=== PATIENT | female | born 1995 | race Caucasian/White ===

== ENCOUNTER 2017-02-06 12:30 | Emergency (ER) | payer BC, MEDICAID ==
[2017-02-06] MEDS ORDERED: Ibuprofen TAB* 200 MG PO ONE (12:48)
[2017-02-06 12:57] VITALS: BP 149/92
--- NOTE | 2017-02-06 13:02 | UC ---
jah Blanco Timothy, scribed for Darya Lugo MD on 02/06/17 at 1250 . Lower Extremity/Ankle HPI - HPI Summary HPI Summary: Didi Zimmer is a 21 yo female presenting to [facility] with 4/10 pain in her right calf since 02/04/17. She states that last night she had a difficult time sleeping second to discomfort. She notes edema "when she looks at it from the side." Pt states she walks a lot at work. Pt states feels pain when steps and "pushes off. " Pain in calf. No paresthesia. No analgesia. Pt states she works at a [employer] facility - pt states an RN at her facility states it may be a DVT so pt was sent for imaging and further eval. She states she is not sexually active, but is on hormonal control pills. Pt does smoke tobacco. 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 She denies any MHx or surgical history, but uses tobacco. - History of Current Complaint Stated Complaint: PAIN IN CALF OF LEG Time Seen by Provider: 02/06/17 12:44 Hx Obtained From: Patient Hx Last Menstrual Period: one month ago ?: No Onset/Duration: Gradual Onset, Lasting Days, Still Present Severity Initially: Moderate Severity Currently: Moderate Pain Intensity: 4 Pain Scale Used: 0-10 Numeric - Allergies/Home Medications Allergies/Adverse Reactions: Allergies Allergy/AdvReac Type Severity Reaction Status Date / Time No Known Allergies Allergy Verified 02/06/17 12:54 Home Medications: Home Medications Medroxyprogesterone Acetate (C [Depo-Provera Contraceptiv] 1 inj IM SEE INSTRUCTIONS 02/06/17 [History Confirmed 02/06/17] PMH/Surg Hx/FS Hx/Imm Hx Previously Healthy: Yes - Surgical History Surgical History: None - Family History Known Family History: Positive: Cardiac Disease, Hypertension, Diabetes, Other - breast CA Negative: Blood Disorder - DVT or other clots - Social History Occupation: Employed Full-time Lives: With Family Alcohol Use: None Substance Use Type: None Smoking Status (MU): Never Smoked Tobacco Type: Cigarettes Review of Systems Constitutional: Negative Skin: Negative Eyes: Negative ENT: Negative Respiratory: Negative Cardiovascular: Negative Gastrointestinal: Negative Genitourinary: Negative Motor: Negative Neurovascular: Negative Musculoskeletal: Other: - pain right calf Neurological: Negative Psychological: Negative All Other Systems Reviewed And Are Negative: Yes Physical Exam Triage Information Reviewed: Yes Completion Of Physical Exam Limited Due To: Altered Mental Status Appearance: Well-Appearing, No Pain Distress Vital Signs: Initial Vital Signs Pulse 95 02/06/17 12:50 Resp 16 02/06/17 12:50 BP 149/92 02/06/17 12:50 Pulse Ox 99 02/06/17 12:50 Neck exam: Normal Neck: Positive: Supple Respiratory: Positive: Normal breath sounds Cardiovascular: Positive: Other: - 2+ PT, DP CBT <2 sec Musculoskeletal Exam: Normal Musculoskeletal: Positive: Strength Intact, Other: - + SLE + flex/ext ankle + flex/ext great toe + very mild TTP calf right leg No edema, no mass Neurological: Positive: Alert, Muscle Tone Normal Psychological Exam: Normal Skin Exam: Normal Diagnostics - Radiology RLE US Xray Interpretation: No Acute Changes - IMPRESSION: NO RIGHT LOWER EXTREMITY DEEP VEIN THROMBOSIS Radiology Interpretation Completed By: Radiologist Re-Evaluation - Re-Evaluation First Eval Re-Evaluation Time: 13:40 Change: Unchanged Comment: Reviewed imaging study with Pt, she is agreeable to be discharged. Lower Extremity Course/Dx - Course Course Of Treatment: Didi Zimmer is a 21 yo female presenting to [facility] with 4/ 10 right calf pain for the past 2 days. She smokes tobacco and is on hormonal control. In the ED course she received ibuprofen for pain management. Her RLE US reports no DVT. After clinical examination and review of her imaging study, she will be discharged home with appropriate instructions. motrin/apap. heat. stretch. pcp f/u. work note - Differential Dx/Diagnosis Differential Diagnosis/HQI/PQRI: DVT Provider Diagnoses: muscle strain Discharge - Discharge Plan Condition: Stable Disposition: HOME Patient Education Materials: Muscle Strain (ED) Forms: *Work Release Referrals: Josesito Bragg MD [Primary Care Provider] - 2 Days Additional Instructions: Alternate ibuprofen (Advil, Motrin) 600mg and Tylenol every 3 hours for pain, Take with food. Do NOT take for more than 4-5 days. Apply heat, 20 minutes at a time, 2-3 times a day for pain Once your muscle are warm, slow, gentle stretching exercises Wear shoes with good ankle support Avoid strenuous activities until your leg is feeling better Contact your doctor to schedule a follow-up appointment. contact your doctor or return with questions or concerns Please follow up with your primary care physician regarding your visit to urgent care today. Return to urgent care or the emergency department with any new or recurring symptoms. The documentation as recorded by the jah peck Timothy accurately reflects the service I personally performed and the decisions made by me, Darya Lugo MD.
--- NOTE | 2017-02-06 13:35 | RAD ---
HISTORY: Right calf pain COMPARISONS: None relevant TECHNIQUE: Multiple transverse and longitudinal ultrasound images were obtained of the right lower extremity from the level of the common femoral vein inferiorly through to the infrapopliteal veins using grayscale, color Doppler, and spectral Doppler imaging with and without compression and with augmentation. Comparison images were obtained of the contralateral common femoral vein. FINDINGS: VEINS: The venous system of the right lower extremity is compressible throughout its course, with normal flow on color Doppler imaging and normal response to augmentation on spectral Doppler imaging. SOFT TISSUES: Unremarkable. OTHER FINDINGS: None. IMPRESSION: NO RIGHT LOWER EXTREMITY DEEP VEIN THROMBOSIS
== END 2017-02-06 13:55 | disposition home or self-care (01) ==
LOC: UCEAST 12:30
DX: S86.911A Strain of unspecified muscle(s) and tendon(s) at lower leg level, right leg, initial encounter (principal); Z72.0 Tobacco use
CPT/HCPCS: 99212; A9270-GY; G0463

== ENCOUNTER → 2017-04-16 14:19 | Emergency (ER) | payer BC ==
[~2017-04-16 14:19] MED LIST: Potassium Chlor TAB* 20 MEQ TAB.ER PO ONE
[2017-04-16 15:03] LABS: Hematocrit 45 % (35-47); Hemoglobin 15.1 g/dl (12.0-16.0); Mean Corpuscular HGB Conc 33 g/dl (31-36); Mean Corpuscular Hemoglobin 30 pg (27-31); Mean Corpuscular Volume 90 fL (80-97); Mean Platelet Volume 9 um3 (7.4-10.4); Red Cell Distribution Width 13 % (10.5-15); White Blood Count 6.1 10^3/ul (3.5-10.8)
[2017-04-16 15:18] LABS: ALT 18 U/L (7-52); AST 16 U/L (13-39); Albumin 4.7 g/dL (3.2-5.2); Alkaline Phosphatase 52 U/L (34-104); Anion Gap 8 mmol/L (2-11); BUN/Creatinine Ratio 11.2 (8-20); Blood Urea Nitrogen 12 mg/dL (6-24); CO2 Carbon Dioxide 25 mmol/L (22-32); Calcium 9.2 mg/dL (8.6-10.3); Chloride 104 mmol/L (101-111); Creatine Kinase 121 U/L (10-223); EGFR African American 84.1 (>60); EGFR Non-African American 65.4 (>60); Glucose 119 mg/dL (70-100); Magnesium 2.1 mg/dL (1.9-2.7); Potassium 3.4 mmol/L (3.5-5.0); Sodium 137 mmol/L (133-145); Total Protein 7.7 g/dL (6.4-8.9)
[2017-04-16 15:19] LABS: Urine Bacteria Absent (Absent); Urine Bilirubin Negative (Negative); Urine Glucose Negative (Negative); Urine Nitrite Negative (Negative)
--- NOTE | 2017-04-16 15:26 | RAD ---
HISTORY: Palpitation COMPARISONS: None VIEWS: 4: Frontal dual-energy and lateral views of the chest. FINDINGS: CARDIOMEDIASTINAL SILHOUETTE: The cardiomediastinal silhouette is normal. BOWEN: The bowen are normal. PLEURA: The costophrenic angles are sharp. No pleural abnormalities are noted. LUNG PARENCHYMA: The lungs are clear. ABDOMEN: The upper abdomen is clear. There is no subphrenic gas. BONES AND SOFT TISSUES: No bone or soft tissue abnormalities are noted. OTHER: None. IMPRESSION: NO ACTIVE CARDIOPULMONARY DISEASE.
[2017-04-16 15:38] LABS: TSH (Thyroid Stimulating Horm) 1.36 mcIU/mL (0.34-5.60)
[2017-04-16 15:57] LABS: Benzodiazepine Urine Screen None Detected (None Detect)
[2017-04-16 17:46] VITALS: BP 133/61
--- NOTE | 2017-04-20 09:19 | PN ---
Progress Note - Progress Note Date of Service: 04/16/17 Note: urine final culture results showed >100,00 of mumtaz vaginalis. called and left message with patient's mother, the phone contact on file. sent flagyl over to pharmacy. spoke with patient at 1:30pm who agrees to treatment plan. Was not having symptoms however due to amount of growth recommended treatment.
--- NOTE | 2017-04-28 07:35 | ED ---
Bianca Blanco Thomas, scribed for David Ragsdale MD on 04/16/17 at 1439 . Palpitations / Dysrhythmia - HPI Summary HPI Summary: The pt is a 21 y/o F presenting to the ED c/o palpitations that began today at around 13:00. The palpitations are characterized as fast and my heart is in my throat. The patient notes similar episodes of palpitations in the past few years, but none to this severity. She also complains of elevated blood pressure of 150/100 during these palpitations. She decided to present to [facility] when a nurse evaluated her pulse and told the patient that she had an irregular pace, but the patient does not have an irregular pace at [facility]. Pt denies nausea, vomiting, dysuria, cough, fever, SOB, and CP. PMHx: previously healthy. PSHx: none. SHx: smoking, no alcohol use, no illicit drug use. The patient is on oral contraceptives. Per triage documentation, the pt complains of CP, but in the examination room the patient denies CP. - History of Current Complaint Chief Complaint: EDDysrhythmPalp Time Seen by Provider: 04/16/17 14:27 Hx Obtained From: Patient Onset/Duration: Sudden Onset, Lasting Hours - today at 13:00, Still Present Severity Currently: None Character: Fast Aggravating: Nothing Alleviating: Nothing Related History: Similar Episode/Dx as - similar as past episodes of palpitations, but no previous episodes to this severity - Allergy/Home Medications Allergies/Adverse Reactions: Allergies Allergy/AdvReac Type Severity Reaction Status Date / Time No Known Allergies Allergy Verified 04/16/17 14:21 PMH/Surg Hx/FS Hx/Imm Hx Previously Healthy: Yes Cardiovascular History: Denies: Hx Atrial Fibrillation, Hx Myocardial Infarction Respiratory History: Denies: Hx Chronic Obstructive Pulmonary Disease (COPD) - Surgical History Surgery Procedure, Year, and Place: None Infectious Disease History: Denies: Traveled Outside the [place] in Last 30 Days - Family History Known Family History: Positive: Cardiac Disease, Hypertension, Diabetes, Other - breast CA Negative: Blood Disorder - DVT or other clots - Social History Alcohol Use: None Substance Use Type: Reports: None Smoking Status (MU): Never Smoked Tobacco Type: Cigarettes Amount Used/How Often: 4-5cig/day Review of Systems Constitutional: Negative Negative: Fever Positive: Palpitations - began today at 13:00, characterized as fast and "my heart is in my throat.", Other - POS: elevated blood pressure of 15/100 during these palpitations Negative: Shortness Of Breath, Cough Negative: Vomiting, Nausea Negative: dysuria All Other Systems Reviewed And Are Negative: Yes Physical Exam - Summary Physical Exam Summary: VITAL SIGNS: Reviewed. GENERAL: ~Patient is a well-developed and nourished female who is lying comfortable in the stretcher. ~Patient is not in any acute respiratory distress. HEAD AND FACE: No signs of trauma. ~No ecchymosis, hematomas or skull depressions. No sinus tenderness. EYES: PERRLA, EOMI x 2, No injected conjunctiva, no nystagmus. EARS: Hearing grossly intact. Ear canals and tympanic membranes are within normal limits. MOUTH: Oropharynx within normal limits. NECK: Supple, trachea is midline, no adenopathy, no JVD, no carotid bruit, no c- spine tenderness, neck with full ROM. CHEST: Symmetric, no tenderness at palpation LUNGS: Clear to auscultation bilaterally. No wheezing or crackles. CVS: She is tachycardic. Regular rhythm. S1 and S2 present, no murmurs or gallops appreciated. ABDOMEN: Soft, non-tender. No signs of distention. No rebound no guarding, and no masses palpated. Bowel sounds are normal. EXTREMITIES: FROM in all major joints, no edema, no cyanosis or clubbing. NEURO: Alert and oriented x 3. No acute neurological deficits. Speech is normal and follows commands. SKIN: Dry and warm Triage Information Reviewed: Yes Vital Signs On Initial Exam: Initial Vitals Temp Pulse Resp BP Pulse Ox 98.2 F 99 20 144/88 100 04/16/17 14:21 04/16/17 14:21 04/16/17 14:21 04/16/17 14:21 04/16/17 14:21 Vital Signs Reviewed: Yes Diagnostics - Vital Signs Vital Signs Temp Pulse Resp BP Pulse Ox 04/16/17 14:21 98.2 F 99 20 144/88 100 - Laboratory Lab Results: Lab Results 04/16/17 04/16/17 04/16/17 Range/Units 14:45 14:45 14:45 WBC 6.1 (3.5-10.8) 10^3/ul RBC 5.00 (4.0-5.4) 10^6/ul Hgb 15.1 (12.0-16.0) g/dl Hct 45 (35-47) % MCV 90 (80-97) fL MCH 30 (27-31) pg MCHC 33 (31-36) g/dl RDW 13 (10.5-15) % Plt Count 242 (150-450) 10^3/ul MPV 9 (7.4-10.4) um3 Neut % (Auto) 52.3 (38-83) % Lymph % (Auto) 33.9 (25-47) % Gladwin % (Auto) 11.5 H (1-9) % Eos % (Auto) 1.0 (0-6) % Baso % (Auto) 1.3 (0-2) % Absolute Neuts (auto) 3.2 (1.5-7.7) 10^3/ul Absolute Lymphs (auto) 2.1 (1.0-4.8) 10^3/ul Absolute Monos (auto) 0.7 (0-0.8) 10^3/ul Absolute Eos (auto) 0.1 (0-0.6) 10^3/ul Absolute Basos (auto) 0.1 (0-0.2) 10^3/ul Absolute Nucleated RBC 0 10^3/ul Nucleated RBC % 0.1 D-Dimer, Quantitative (Less Than 230) ng/mL Sodium 137 (133-145) mmol/L Potassium 3.4 L (3.5-5.0) mmol/L Chloride 104 (101-111) mmol/L Carbon Dioxide 25 (22-32) mmol/L Anion Gap 8 (2-11) mmol/L BUN 12 (6-24) mg/dL Creatinine 1.07 H (0.51-0.95) mg/dL Est GFR ( Amer) 84.1 (>60) Est GFR (Non-Af Amer) 65.4 (>60) BUN/Creatinine Ratio 11.2 (8-20) Glucose 119 H (70-100) mg/dL Lactic Acid 1.4 (0.5-2.0) mmol/L Calcium 9.2 (8.6-10.3) mg/dL Magnesium 2.1 (1.9-2.7) mg/dL Total Bilirubin 0.50 (0.2-1.0) mg/dL AST 16 (13-39) U/L ALT 18 (7-52) U/L Alkaline Phosphatase 52 (34-104) U/L Total Creatine Kinase 121 (10-223) U/L Troponin I 0.00 (<0.04) ng/mL Total Protein 7.7 (6.4-8.9) g/dL Albumin 4.7 (3.2-5.2) g/dL Globulin 3.0 (2-4) g/dL Albumin/Globulin Ratio 1.6 (1-3) TSH 1.36 (0.34-5.60) mcIU/mL Beta HCG, Quant < 0.60 mIU/mL Urine Color Urine Appearance Urine pH (5-9) Ur Specific [place] (1.010-1.030) Urine Protein (Negative) Urine Ketones (Negative) Urine Blood (Negative) Urine Nitrate (Negative) Urine Bilirubin (Negative) Urine Urobilinogen (Negative) Ur Leukocyte Esterase (Negative) Urine WBC (Auto) (Absent) Urine RBC (Auto) (Absent) Ur Squamous Epith Cells (Absent) Urine Bacteria (Absent) Urine Glucose (Negative) Urine Opiates Screen (None Detect) Ur Barbiturates Screen (None Detect) Ur Phencyclidine Scrn (None Detect) Ur Amphetamines Screen (None Detect) U Benzodiazepines Scrn (None Detect) Urine Cocaine Screen (None Detect) U Cannabinoids Screen (None Detect) 04/16/17 04/16/17 04/16/17 Range/Units 14:45 14:58 14:58 WBC (3.5-10.8) 10^3/ul RBC (4.0-5.4) 10^6/ul Hgb (12.0-16.0) g/dl Hct (35-47) % MCV (80-97) fL MCH (27-31) pg MCHC (31-36) g/dl RDW (10.5-15) % Plt Count (150-450) 10^3/ul MPV (7.4-10.4) um3 Neut % (Auto) (38-83) % Lymph % (Auto) (25-47) % Gladwin % (Auto) (1-9) % Eos % (Auto) (0-6) % Baso % (Auto) (0-2) % Absolute Neuts (auto) (1.5-7.7) 10^3/ul Absolute Lymphs (auto) (1.0-4.8) 10^3/ul Absolute Monos (auto) (0-0.8) 10^3/ul Absolute Eos (auto) (0-0.6) 10^3/ul Absolute Basos (auto) (0-0.2) 10^3/ul Absolute Nucleated RBC 10^3/ul Nucleated RBC % D-Dimer, Quantitative < 200 (Less Than 230) ng/mL Sodium (133-145) mmol/L Potassium (3.5-5.0) mmol/L Chloride (101-111) mmol/L Carbon Dioxide (22-32) mmol/L Anion Gap (2-11) mmol/L BUN (6-24) mg/dL Creatinine (0.51-0.95) mg/dL Est GFR ( Amer) (>60) Est GFR (Non-Af Amer) (>60) BUN/Creatinine Ratio (8-20) Glucose (70-100) mg/dL Lactic Acid (0.5-2.0) mmol/L Calcium (8.6-10.3) mg/dL Magnesium (1.9-2.7) mg/dL Total Bilirubin (0.2-1.0) mg/dL AST (13-39) U/L ALT (7-52) U/L Alkaline Phosphatase (34-104) U/L Total Creatine Kinase (10-223) U/L Troponin I (<0.04) ng/mL Total Protein (6.4-8.9) g/dL Albumin (3.2-5.2) g/dL Globulin (2-4) g/dL Albumin/Globulin Ratio (1-3) TSH (0.34-5.60) mcIU/mL Beta HCG, Quant mIU/mL Urine Color Yellow Urine Appearance Cloudy Urine pH 6.0 (5-9) Ur Specific [place] 1.016 (1.010-1.030) Urine Protein Negative (Negative) Urine Ketones Negative (Negative) Urine Blood Negative (Negative) Urine Nitrate Negative (Negative) Urine Bilirubin Negative (Negative) Urine Urobilinogen Negative (Negative) Ur Leukocyte Esterase 3+ H (Negative) Urine WBC (Auto) Trace(0-5/hpf) (Absent) Urine RBC (Auto) Absent (Absent) Ur Squamous Epith Cells Present H (Absent) Urine Bacteria Absent (Absent) Urine Glucose Negative (Negative) Urine Opiates Screen None detected (None Detect) Ur Barbiturates Screen None detected (None Detect) Ur Phencyclidine Scrn None detected (None Detect) Ur Amphetamines Screen None detected (None Detect) U Benzodiazepines Scrn None detected (None Detect) Urine Cocaine Screen None detected (None Detect) U Cannabinoids Screen None detected (None Detect) Result Diagrams: 04/16/17 14:45 04/16/17 14:45 Lab Statement: Any lab studies that have been ordered have been reviewed, and results considered in the medical decision making process. - Radiology CXR Xray Interpretation: No Acute Changes - No active cardiopulmonary disease. Radiology Interpretation Completed By: Radiologist - EKG 14:36 Cardiac Rate: NL - 96 BPM EKG Interpretation: NSR with no ST elevations Course/Dx - Course Assessment/Plan: The pt is a 21 y/o F presenting to the ED c/o palpitations that began today at around 13:00. The palpitations are characterized as fast and my heart is in my throat. The patient notes similar episodes of palpitations in the past few years, but none to this severity. She also complains of elevated blood pressure of 150/100 during these palpitations. She decided to present to [facility] when a nurse evaluated her pulse and told the patient that she had an irregular pace, but the patient does not have an irregular pace at [facility]. Pt denies nausea, vomiting, dysuria, cough, fever, SOB , and CP. PMHx: previously healthy. PSHx: none. SHx: smoking, no alcohol use, no illicit drug use. The patient is on oral contraceptives. Per triage documentation, the pt complains of CP, but in the examination room the patient denies CP. The patients bloodwork is without significant abnormalities. The D- dimer is negative and the CXR is negative. All the patients symptoms have resolved. The EKG is NSR without ST elevations. The patient is asymptomatic, so she will be discharged home with follow up by her PCP. - Diagnoses Differential Diagnosis/HQI/PQRI: Positive: Coronary Artery Disease, Hypokalemia , Pericarditis Provider Diagnoses: Palpitations, Chest pain Discharge - Discharge Plan Condition: Stable Disposition: HOME Prescriptions: metroNIDAZOLE VAGINAL 0.75%* 1 applic VAGINAL BEDTIME #1 tube Patient Education Materials: Chest Pain (ED), Palpitations (ED) Referrals: Lukas Yang MD [Primary Care Provider] - 3 Days The documentation as recorded by the Bianca peck Thomas accurately reflects the service I personally performed and the decisions made by me, David Ragsdale MD.
== END | disposition home or self-care (01) ==
LOC: ED 14:19
DX: R00.2 Palpitations (principal); R07.89 Other chest pain; Z32.02 Encounter for pregnancy test, result negative; N76.0 Acute vaginitis; F17.210 Nicotine dependence, cigarettes, uncomplicated
CPT/HCPCS: 36415; 71020; 80053; 80307; 81003; 81015; 82550; 83605; 83735; 84443; 84484; 84702; 85025; 85379; 87040; 87086; 93005; 99282; A9270-GY

== ENCOUNTER 2022-09-01 02:42 | Inpatient (IN) ==
[2022-09-01] MEDS ORDERED: Lactated Ringers 1000 ml BAG 1,000 ML IV ONE ×2 (04:45→08:22)
[2022-09-01] MEDS ORDERED: Buffered Lidocaine 1% SYRIN 1 ml INTRADERM ONE (04:45)
[2022-09-01 06:19] LABS: Urine Benzodiazepine Screen None Detected (None Detect); Urine Cannabinoids Screen None Detected (None Detect); Urine Opiates Screen None Detected (None Detect)
[2022-09-01 06:33] LABS: Hematocrit 40 % (35-47); Red Blood Count 4.51 10^6 /uL (3.70-4.87); White Blood Count 12.5 10^3/uL (3.5-10.8)
[2022-09-01 06:34] LABS: ABS Basophils 0.1 10^3/ul (0-0.2); ABS Lymphocytes 1.5 10^3/ul (1.0-4.8); ABS Monocytes 0.8 10^3/ul (0-0.8); Eosinophil % 0.3 %; Lymphocyte % 11.9 %; Mean Corpuscular HGB Conc 33 g/dL (31-36); Mean Corpuscular Hemoglobin 29 pg (27-31); Mean Corpuscular Volume 88 fL (80-97); Mean Platelet Volume 8.1 fL (7.4-10.4); Nucleated Red Blood Cells % 0.1; Platelet Count 364 10^3/uL (150-450); Red Cell Distribution Width 14 % (10-15)
[2022-09-01] MEDS: Lactated Ringers 1000 ml BAG 1,000 ML IV SCH ×2 (07:08→10:20)
[2022-09-01] MEDS ORDERED: OBEPIDURAL (200 ML) 200 ML EPIDURAL ONE (07:13)
[2022-09-01] MEDS ORDERED: EPINEPHrine SULFITE FREE 1 MG/ML ONE ×2 (07:13→07:25)
[2022-09-01] MEDS ORDERED: Lidocaine 1% VIAL 10 MG/ML VIAL 30 ML ONE (07:13)
[2022-09-01] MEDS ORDERED: Sodium Citrate/Citric Acid LIQ 15 ML UDC PO PRN (08:22)
[2022-09-01] MEDS ORDERED: Lactated Ringers 1000 ml BAG 500 ML IV PRN ×2 (08:22)
[2022-09-01] MEDS ORDERED: Phenylephrine 40 mcg/mL 10mL (400mcg) SYRINGE IV PUSH PRN ×2 (08:22)
[2022-09-01] MEDS ORDERED: Lactated Ringers 1000 ml BAG 1,000 ML IV SCH ×3 (09:00→13:00)
[2022-09-01] MEDS ORDERED: OBEPIDURAL (200 ML) 200 ML EPIDURAL SCH (09:00)
[2022-09-01 09:23] LABS: Urine Appearance Clear; Urine Bilirubin Negative (Negative); Urine Blood Negative (Negative); Urine Color Yellow; Urine Glucose Negative (Negative); Urine Ketones 1+ (Negative); Urine Nitrite Negative (Negative); Urine Protein 1+(30 mg/dL) (Negative); Urine Specific Gravity 1.028 (1.002-1.030); Urine Urobilinogen Negative (Negative)
[2022-09-01 09:38] LABS: Urine Bacteria Absent (Absent); Urine Red Blood Cell Absent (Absent); Urine Squamous Epithelial Cell Present (Absent); Urine White Blood Cell Absent (Absent)
[2022-09-01] MEDS ORDERED: Dibucaine 1% OINT 28.35 GM TUBE PR PRN (12:17)
[2022-09-01] MEDS ORDERED: Oxytocin 10 UNITS/ML 1 ML VIAL IM PRN (12:17)
[2022-09-01] MEDS ORDERED: Witch Hazel PAD JAR TOPICAL PRN (12:17)
[2022-09-02 07:26] LABS: ABS Basophils 0.1 10^3/ul (0-0.2); ABS Eosinophils 0.1 10^3/ul (0-0.6); ABS Lymphocytes 1.8 10^3/ul (1.0-4.8); ABS Neutrophils 9.9 10^3/ul (1.5-7.7); Eosinophil % 0.9 %; Hematocrit 34 % (35-47); Hemoglobin 11.2 g/dL (12.0-16.0); Lymphocyte % 13.7 %; Mean Corpuscular HGB Conc 33 g/dL (31-36); Mean Corpuscular Hemoglobin 29 pg (27-31); Mean Corpuscular Volume 88 fL (80-97); Platelet Count 326 10^3/uL (150-450); Red Blood Count 3.88 10^6 /uL (3.70-4.87); Red Cell Distribution Width 14 % (10-15)
[2022-09-02 08:13] VITALS: BP 124/75
== END 2022-09-02 15:57 | disposition home or self-care (01) | DRG 560 ==
LOC: MCHOBOUT 02:42 → MCHOB 03:37
PROVIDERS: ADMIT Midwife; ATTEND Midwife

== ENCOUNTER 2024-03-10 08:22 | Inpatient (IN) ==
[~2024-03-10 08:22] MED LIST changes: +Lidocaine 1% VIAL 10 MG/ML 30 ML VIAL INJ PRN; -Potassium Chlor TAB* 20 MEQ TAB.ER PO ONE
[2024-03-10] MEDS: Lactated Ringers 1000 ml BAG 1,000 ML IV ONE (09:38)
[2024-03-10] MEDS: Oxytocin in LR 20,000 MILLI.UNIT/1,000 ML BAG IV SCH (09:46)
[2024-03-10 10:23] LABS: Urine Benzodiazepine Screen None Detected (None Detect); Urine Cannabinoids Screen None Detected (None Detect); Urine Opiates Screen None Detected (None Detect)
[2024-03-10] MEDS ORDERED: Ondansetron 4 mg VIAL 2 MG/ML 2 ml VIAL IV PRN (10:38)
[2024-03-10 10:44] LABS: Albumin 3.7 g/dL (3.2-5.2); Albumin/Globulin Ratio 1.4 (1-3); Creatinine, Serum 0.51 mg/dL (0.51-0.95); Globulin 2.7 g/dL (2-4); Potassium 3.9 mmol/L (3.5-5.0); Total Bilirubin 0.4 mg/dL (0.2-1.0); Total Protein 6.4 g/dL (6.4-8.9); eGFR CKD-EPI 131.1 (>60)
[2024-03-10] MEDS: Lactated Ringers 1000 ml BAG 1,000 ML IV SCH (15:15)
[2024-03-10 15:29] LABS: ABS Basophils 0.1 10^3/uL (0.0-0.1); ABS Lymphocytes 1.8 10^3/uL (1.0-4.8); ABS Monocytes 0.9 10^3/uL (0.0-0.9); ABS Neutrophils 7.8 10^3/uL (1.5-7.6); Eosinophil % 0.5 %; Hematocrit 36.1 % (35-45); Hemoglobin 12.1 g/dL (11.5-14.3); Lymphocyte % 16.7 %; Mean Corpuscular Hemoglobin 29.7 pg (27-33); Mean Corpuscular Hgb Conc 33.5 g/dL (31-36); Mean Corpuscular Volume 88.5 fL (80-97); Mean Platelet Volume 8.7 fL (7.5-11.2); Platelet Count 259 10^3/uL (150-450); Red Blood Count 4.08 10^6/uL (3.63-4.92); Red Cell Distribution Width 13.8 % (12-17); White Blood Count 10.7 10^3/uL (3.8-11.8)
[2024-03-10] MEDS ORDERED: Sodium Citrate/Citric Acid LIQ 15 ML UDC PO PRN (16:02)
[2024-03-10] MEDS ORDERED: Phenylephrine 40 mcg/mL 10mL (400mcg) SYRINGE IV PUSH PRN ×2 (16:02)
[2024-03-10] MEDS: OBEPIDURAL (200 ML) 200 ML EPIDURAL ONE (16:23)
[2024-03-10] MEDS ORDERED: Glycerin ADULT 2.4 gm SUPP PR PRN (17:08)
[2024-03-10 17:20] LABS: Urine Appearance Clear; Urine Bilirubin Negative (Negative); Urine Blood Negative (Negative); Urine Color Light-Yellow; Urine Glucose Negative (Negative); Urine Ketones 1+ (Negative); Urine Nitrite Negative (Negative); Urine Protein Negative (Negative); Urine Specific Gravity 1.012 (1.002-1.030); Urine Urobilinogen Negative (Negative); Urine pH 7.5 (5.0-8.0)
[2024-03-10] MEDS ORDERED: Lactated Ringers 1000 ml BAG 1,000 ML IV SCH (18:00)
[2024-03-10] MEDS: Witch Hazel PAD JAR TOPICAL PRN (18:03)
[2024-03-10] MEDS: Dibucaine 1% OINT 28.35 GM TUBE PR PRN (18:03)
[2024-03-11 08:37] LABS: ABS Basophils 0.1 10^3/uL (0.0-0.1); ABS Eosinophils 0.1 10^3/uL (0.0-0.5); ABS Lymphocytes 1.8 10^3/uL (1.0-4.8); ABS Neutrophils 7.9 10^3/uL (1.5-7.6); ABS Nucleated RBC 0.01 10^3/ul; Eosinophil % 0.8 %; Hematocrit 33.4 % (35-45); Hemoglobin 11.5 g/dL (11.5-14.3); Lymphocyte % 16.4 %; Mean Corpuscular Hemoglobin 30.6 pg (27-33); Mean Corpuscular Hgb Conc 34.3 g/dL (31-36); Mean Platelet Volume 8.6 fL (7.5-11.2); Nucleated Red Blood Cells % 0.1 %/100WBC (0.0-0.8); Platelet Count 241 10^3/uL (150-450); Red Blood Count 3.75 10^6/uL (3.63-4.92); White Blood Count 10.8 10^3/uL (3.8-11.8)
[2024-03-11] MEDS: Buffered Lidocaine 1% SYRIN 1 ml INTRADERM ONE (13:56)
[2024-03-11] MEDS: Lactated Ringers 1000 ml BAG 1,000 ML IV SCH (13:56)
[2024-03-11] MEDS: Lactated Ringers 1000 ml BAG 1,000 ML IV ONE (13:56)
[2024-03-11] MEDS: Lidocaine 1.5% EPI 1:200,000 30 ML SDV ONE (13:56)
[2024-03-11] MEDS: Oxytocin in LR 20,000 MILLI.UNIT/1,000 ML BAG IV SCH (13:57)
[2024-03-11] MEDS: OBEPIDURAL (200 ML) 200 ML EPIDURAL SCH (13:57)
[2024-03-12 08:04] VITALS: BP 135/85
== END 2024-03-12 09:40 | disposition home or self-care (01) | DRG 560 ==
LOC: MCHOBOUT 08:22 → MCHOB 08:26
PROVIDERS: ADMIT Obstetrics & Gynecology; ATTEND Obstetrics & Gynecology